=== PATIENT | female | born 1995 | race Caucasian/White ===

== ENCOUNTER 2020-04-09 15:42 | Outpatient (CLI) | payer OTHER ==
[2020-04-09 16:45] LABS: APPEARANCE,URINE SLIGHTLY-CLOUDY; BILIRUBIN,URINE NEGATIVE (NEGATIVE); COLOR,URINE STRAW; GLUCOSE, URINE NEGATIVE (NEGATIVE); KETONES,URINE TRACE mg/dL (NEGATIVE); LEUKOCYTE ESTERASE,URINE LARGE (NEGATIVE); NITRITE,URINE NEGATIVE (NEGATIVE); PROTEIN,URINE NEGATIVE (NEGATIVE); URINE SPECIFIC GRAVITY 1.003; UROBILINOGEN,URINE NEGATIVE mg/dL (<2.0)
== END 2020-04-09 16:08 | disposition home or self-care (01) ==
LOC: LC 15:42
PROVIDERS: ATTEND Obstetrics & Gynecology
DX: O36.8120 Decreased fetal movements, second trimester, not applicable or unspecified (principal); Z3A.25 25 weeks gestation of pregnancy
CPT/HCPCS: 81001

== ENCOUNTER 2020-07-29 13:58 | Inpatient (IN) | payer OTHER ==
[2020-07-29] MEDS ORDERED: RINGERS SOLUTION,LACTATED 1,000 ML IV ONE (14:14)
[2020-07-29] MEDS ORDERED: RINGERS SOLUTION,LACTATED 1,000 ML IV PRN (14:14)
[2020-07-29] MEDS ORDERED: OXYTOCIN/0.9 % SODIUM CHLORIDE 30 UNIT/500 ML RTUINJ IV PRN ×2 (14:20→19:13)
[2020-07-29 14:38] LABS: APPEARANCE,URINE SLIGHTLY-CLOUDY; BILIRUBIN,URINE NEGATIVE (NEGATIVE); COLOR,URINE YELLOW; GLUCOSE, URINE NEGATIVE (NEGATIVE); KETONES,URINE TRACE mg/dL (NEGATIVE); LEUKOCYTE ESTERASE,URINE SMALL (NEGATIVE); NITRITE,URINE NEGATIVE (NEGATIVE); PROTEIN,URINE 30 mg/dL (NEGATIVE); URINE SPECIFIC GRAVITY 1.017; UROBILINOGEN,URINE NEGATIVE mg/dL (<2.0)
[2020-07-29 14:40] LABS: ABSOLUTE BASOPHILS # (AUTO) 0.1 10^3/uL (0.0-0.2); ABSOLUTE EOSINOPHILS # (AUTO) 0.2 10^3/uL (0.0-0.6); ABSOLUTE LYMPHOCYTES (AUTO) 1.2 10^3/uL (0.5-4.7); ABSOLUTE MONOCYTES (AUTO) 0.6 10^3/uL (0.1-1.4); ABSOLUTE NEUT (AUTO) 5.7 10^3/uL (1.7-8.2); BASOPHILS % (AUTO) 0.7 % (0-2); EOSINOPHILS % (AUTO) 2.6 % (0-6); HEMATOCRIT 33.4 % (36.0-47.0); HEMOGLOBIN 10.8 g/dL (12.0-15.5); LYMPHOCYTES % (AUTO) 15.4 % (13-45); MEAN CORPUSCULAR HGB CONC 32.5 g/dL (32.0-36.0); MEAN CORPUSCULAR VOLUME 77 fl (80-97); MONOCYTES % (AUTO) 7.1 % (3-13); PLATELET COUNT 224 10^3/uL (150-450); RED BLOOD COUNT 4.33 10^6/uL (3.72-5.28); RED CELL DISTRIBUTION WIDTH 15.2 % (11.5-14.0); SEGMENTED NEUTROPHILS % (AUTO) 74.2 % (42-78); TOTAL CELLS COUNTED % (AUTO) 100 %; WHITE BLOOD COUNT 7.7 10^3/uL (4.0-10.5)
[2020-07-29] MEDS ORDERED: LIDOCAINE 1% INJ-PF (10 MG/ML) 30 ML SDV ONE (15:07)
[2020-07-29] MEDS ORDERED: MISOPROSTOL 0.2 MG TABLET ONE (15:07)
[2020-07-29] MEDS ORDERED: OXYTOCIN 10 UNIT/ML VIAL ONE (15:07)
[2020-07-29] MEDS ORDERED: OXYTOCIN/0.9 % SODIUM CHLORIDE 30 UNIT/500 ML RTUINJ ONE (15:08)
--- NOTE | 2020-07-29 15:08 | Admission Physical ---
Datetime Report Generated by CPN: 07/29/2020 15:07 CURRENT ADMISSION Hx Assessment: The History has been Reviewed and is Current Chief Complaint: Scheduled Induction of Labor Indication for Induction: Postterm Admit Impression : Postterm, Intrauterine Admit Plan: Admit to Unit; Initiate Labor Induction Protocol (Annotations: Data stored by [facility] on behalf of user) ALLERGIES Medication Allergies: No Medication Allergies: No Known Allergies (07/29/2020) Latex: No Latex Allergies OBSTETRICAL HISTORY EDC: 07/21/2020 00:00 : 2 Para: 1 Term: 1 : 0 SAB: 0 IAB: 0 Ectopic: 0 Livin Cesareans: 0 VBACs: 0 Multiple Births: 0 Gestational Diabetes: No Rh Sensitization: No Incompetent Cervix: No RITESH: No Infertility: No ART Treatment: No Uterine Anomaly: No IUGR: No Hx Previous C/S: No Macrosomia: No Hx Loss/Stillborn: No PIH: No Hx : No Placenta Previa/Abruption: No Depression/PP Depression: No PTL/PROM: No Post Hemorrhage: No Current Procedures: Ultrasound; NST Obstetrical History Comments: G1 [facility] 01/08/2018 SEE RECORDS Alcohol: No Marijuana : No Cocaine: No Other Illicit Drugs: No Cigarettes: Former Smoker. 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 Surgery: No Heart Disease: No Hosp/Surgery: Yes Autoimmune Disorder: No Anesthetic Complications: No Kidney Disease: No Abnormal Pap Smear: No Neuro/Epilepsy: No Psychiatric Disorders: No Other Medical Diseases: No Hepatitis/Liver Disease: No Significant Family History: No Varicosities/Phlebitis: No Trauma/Violence : No Thyroid Dysfunction: No INFECTIOUS HISTORY Gonorrhea: No Genital Herpes: No Chlamydia: No Tuberculosis: No Syphilis: No Hepatitis: No HIV/AIDS Exposure: No Rash or Viral Illness: No HPV: No PHYSICAL EXAM General: Normal Heart: Normal Lungs: Normal Abdomen: Normal Extremities: Normal Pelvic Type: Adequate Physical Exam Comments: proven to 7lbs 8oz Vital Signs: Reviewed; Within Normal Limits VAGINAL EXAM Contraction Comments: irregular MEMBRANES Membranes: Intact FETUS A EGA: 41.1 Monitoring: External US Presentation: Vertex Admit Comment: 24yo @41w1d into L_D for IOL secondary to post term . Pt is O pos, RI, GBS neg with uncomplicated . Plan is pitocin induction at this time. Epidural prn. Dr. Montano the OB program director/air personality today and aware of pt's arrival to unit. PLANS FOR LABOR AND DELIVERY Pain Management: Epidural Feeding Preference: Both Benefit of Breast Feed Discussed: Yes Circumcision: N/A INFORMED CONSENT Assignment: Tiffany Montano MD Signature: with User ID: Cathy : with User ID: Cathy
[2020-07-29 15:16] LABS: URINE AMPHETAMINES SCREEN NEGATIVE; URINE BARBITURATES SCREEN NEGATIVE; URINE BENZODIAZEPINES SCREEN NEGATIVE; URINE COCAINE SCREEN NEGATIVE; URINE MARIJUANA (THC) SCREEN NEGATIVE; URINE METHADONE SCREEN NEGATIVE; URINE PHENCYCLIDINE SCREEN NEGATIVE
--- NOTE | 2020-07-29 16:56 | L&D Progress Notes ---
PROGRESS NOTES Datetime Report Generated by CPN: 07/29/2020 16:56 PROGRESS NOTE Impression Other: IUP @ 43s2a-GQQ Procedures: Artificial ROM; Sterile Vag Exam Plan: Continue Present Management; Induction Informed Consent Obtained: Vaginal Delivery; Induction of Labor; Risks, Benefits and Alternatives Discussed Vital Signs : Reviewed; Within Normal Limits Comment: S:pt comfortable, planning epidural for pain relief, no concerns at this time, agreeable to AROM O:vss, cat I tracing, cervix as stated, pit @ 4mu/min A: IUP @ 13x3g-BNZ for post dates- stable AROM-moderate amount of clear fluid, tolerated well P: continue IOL, anticipate vaginal delivery, epidural prn VAGINAL EXAM Contractions: irregular LAST VAGINAL EXAM-NURSING Nursing Exam Dilitation: 5.0 Nursing Exam Effacement: 60 Nursing Exam Station: -1 Nursing Exam Contractions: with irritability MEMBRANES Membranes: Ruptured Amniotic Fluid Color: Clear FETUS A FHR Category: Category I Presentation: Vertex SIGNATURE SIGNATURE: [id number] Assignment: Tiffany Montano MD Signature: with User ID: Cathy : with User ID: Cathy
[2020-07-29] MEDS ORDERED: PROMETHAZINE HCL INJ 25 MG/1 ML VIAL IV ONE (16:59)
[2020-07-29] MEDS ORDERED: NALBUPHINE HCL INJ 10 MG/1 ML AMPULE IV ONE (16:59)
[2020-07-29] MEDS ORDERED: NALBUPHINE HCL INJ 10 MG/1 ML AMPULE ONE (17:01)
[2020-07-29] MEDS ORDERED: PROMETHAZINE HCL INJ 25 MG/1 ML VIAL ONE (17:01)
[2020-07-29] MEDS ORDERED: FENTANYL/BUPIVACAINE/NS/PF 300 MCG/150 ML RTUINJ EPI ONE (17:02)
[2020-07-29] MEDS ORDERED: EPHEDRINE SULFATE INJ 50 MG/1 ML AMPULE ONE (17:02)
[2020-07-29] MEDS ORDERED: ROPIVACAINE HCL 0.2% INJ/PF (2 MG/ML) 20 ML SDV ONE (17:02)
[2020-07-29] MEDS ORDERED: DIPH/PERTUSS(ACELL)/TETANUS VAC/PF 0.5 ML SYR (>=10YO) IM PRN (19:13)
[2020-07-29] MEDS ORDERED: ZOLPIDEM TARTRATE 5 MG TABLET PO PRN (19:13)
[2020-07-29] MEDS ORDERED: PROMETHAZINE HCL INJ 25 MG/1 ML VIAL IV PRN (19:13)
[2020-07-29] MEDS ORDERED: GLYCERIN/WITCH HAZEL LEAF 1 EACH MED..WIPE TP PRN (19:13)
[2020-07-29] MEDS ORDERED: PROMETHAZINE HCL 25 MG TABLET PO PRN (19:13)
[2020-07-29] MEDS ORDERED: MAGNESIUM HYDROXIDE SUSP 30 ML UDCUP PO PRN (19:13)
[2020-07-29] MEDS ORDERED: DIBUCAINE 1% OINTMENT 28 GM TP PRN (19:13)
[2020-07-29] MEDS ORDERED: DIPHENHYDRAMINE HCL 25 MG CAPSULE PO PRN (19:13)
[2020-07-29] MEDS ORDERED: MEASLES,MUMPS&RUBELLA VACC/PF 0.5 ML VIAL SUBCUT PRN (19:13)
[2020-07-29] MEDS ORDERED: NA PHOS,M-B/NA PHOS,DI-BA (ADULT) 133 ML ENEMA PR PRN (19:13)
[2020-07-29] MEDS ORDERED: ACETAMINOPHEN WITH CODEINE #3 TABLET PO PRN ×2 (19:13)
[2020-07-29] MEDS ORDERED: BENZOCAINE/MENTHOL AEROSOL SPRAY 56 ML TOP PRN (19:13)
[2020-07-29] MEDS ORDERED: PSEUDOEPHEDRINE HCL 30 MG TABLET PO PRN (19:13)
[2020-07-29] MEDS ORDERED: PROMETHAZINE HCL 25 MG SUPP.RECT PR PRN (19:13)
[2020-07-29] MEDS ORDERED: ACETAMINOPHEN 650 MG SUPP.RECT PR PRN (19:13)
--- NOTE | 2020-07-29 22:11 | Delivery Summary ---
Del Sum A-C Datetime Report Generated by CPN: 07/29/2020 22:11 DELIVERY PERSONNEL DELIVERY PERSONNEL: [id number] Delivery Doctor:: Tiffany Montano MD Labor and Delivery Nurse:: Viri Lobo RNhand brush filler Nurse:: Rebeca Pete RN Nursery Nurse:: Kevyn Fajardo RN MATERNAL INFORMATION Delivery Anesthesia: Epidural Medications After Delivery: Pitocin 30 Units in 500ml NS/D5W; Cytotec 1000mcg Per Rectum/Vagina Estimated Blood Loss (ml): 400 Maternal Complications: Precipitous Labor (<3hrs) LABOR SUMMARY EDC: 07/21/2020 00:00 No. Babies in Womb: 1 Attempted: No Labor Anesthesia: Epidural LABOR INFORMATION Reason for Induction: Post Dates Onset of Labor: 07/29/2020 16:40 Complete Dilatation: 07/29/2020 18:48 Oxytocin: Induction Group B Beta Strep: Negative Antibiotics # of Doses: 0 Steroids Given: None Reason Steroids Not Administered: Not Applicable MEMBRANES Membranes Rupture Method: Artificial Rupture of Membranes: 07/29/2020 16:40 Length of Rupture (hr): 2.27 Amniotic Fluid Color: Clear Amniotic Fluid Amount: Small Amniotic Fluid Odor: Normal STAGES OF LABOR Stage 1 hr: 2 Stage 1 min: 8 Stage 2 hr: 0 Stage 2 min: 8 Stage 3 hr: 0 Stage 3 min: 6 Total Time in Labor hr: 2 Total Time in Labor min: 22 VAGINAL DELIVERY Episiotomy: None Laceration #1: Perineal Laceration Extension #1: First Degree Laceration #2: None Laceration #3: None Laceration Repair: Not Applicable Laceration Repair Note: first degree perineal skin break not in need of repair. Sponge Count Correct: N/A; Vaginal Sweep Performed Sharps Count Correct: N/A CSECTION DELIVERY Primary Indication: N/A Secondary Indication: N/A CSection Incidence: N/A Labor: N/A Elective: N/A CSection Incision: N/A BABY A INFORMATION Infant Delivery Date/Time: 07/29/2020 18:56 Method of Delivery: Vaginal Nurse Controlled Delivery: No Born in Route : No : N/A Forceps: N/A Vacuum Extraction: N/A Shoulder Dystocia : No PRESENTATION/POSITION BABY A Presentation: Cephalic Cephalic Presentation: Vertex Vertex Position: Left Occipital Anterior Breech Presentation: N/A PLACENTA INFORMATION BABY A Placenta Delivery Time : 07/29/2020 19:02 Placenta Method of Delivery: Spontaneous Placenta Status: Delivered SCORES BABY A Heart Rate 1 min: >100 bpm Resp Effort 1 min: Good Cry Reflex Irritability 1 min: Cough or Sneeze or Pulls Away Muscle Tone 1 min: Active Motion Color 1 min: Body [place], Extremities Blue SCORE 1 MIN: 9 Heart Rate 5 min: >100 bpm Resp Effort 5 min: Good Cry Reflex Irritability 5 min: Cough or Sneeze or Pulls Away Muscle Tone 5 min: Active Motion Color 5 min: Body [place], Extremities Blue SCORE 5 MIN: 9 INFANT INFORMATION BABY A Gestational Age at Delivery: 41.1 Gestational Status: Late Term- 41- 41.6 Weeks Outcome : Liveborn Condition : Stable Sex: Female IDENTIFICATION BABY A Verification Date/Time: 07/29/2020 19:29 ID Band Number: [id number] Mother's Name Verified: Yes Infant RN Verifying : Tea Saldana RN/ Nakia Collado RN WEIGHT/LENGTH BABY A Infant Birthweight (gm): 3799 Weight (lb): 8 Infant Weight (oz): 6 Length (in): 21.50 Infant Length (cm): 54.61 CORD INFORMATION BABY A No. Cord Vessels: 3 Nuchal Cord : N/A Cord Blood Taken: Yes-For Eval (Mom's Blood Type - or O+) ASSESSMENT BABY A Complications: None Physical Findings at Delivery: Within Normal Limits Skin to Skin: Yes Transferred To: Remains with Mother BABY B INFORMATION : N/A SIGNATURES Signature: with User ID: [email or web address]
--- NOTE | 2020-07-29 22:11 | Birth Certificate Data ---
Cert Data Datetime Report Generated by CPNick: 07/29/2020 22:11 CERTIFICATE DATA 47a. Care: Yes (04/09/2020 15:54:Viri Lobo RN) 47b. Date of First Visit: 01/09/2020 00:00 (04/09/2020 15:54:Viri Lobo RN) 47c. Date of Last Visit: 07/22/2020 00:00 (04/09/2020 15:54:Viri Lobo RN) 47d. Number of Visits: 13 (04/09/2020 15:54:Viri Lobo RN) 48a. Number of Prev Live Births: 1 (04/09/2020 15:54:Viri Lobo RN) 48b. Now Livin (04/09/2020 15:54:Viri Lobo RN) 48c. Live Births Now : 0 (04/09/2020 15:54:QS system process) 48d. Date of Last Live : 01/08/2018 00:00 (04/09/2020 15:54:Viri Lobo RN) 48e. Losses: 0 (04/09/2020 15:54:Viri Lobo RN) RISK FACTORS IN THIS 49a. Diabetes: No (04/09/2020 15:54:Viri Lobo RN) 49b. Hypertension: No (04/09/2020 15:54:Viri Lobo RN) 49c. Previous Births: 0 (04/09/2020 15:54:Viri Lobo RN) 49d. Stillborns: No (04/09/2020 15:54:Viri Lobo RN) 49d. IUGR: No (04/09/2020 15:54:Viri Lobo RN) 49e. Infertility Treatment: No (04/09/2020 15:54:Viri Lobo RN) 49f. Previous Cesareans: 0 (04/09/2020 15:54:Viri Lobo RN) Mother's Height 50b. Height Inches: 62 (07/29/2020 21:47:QS system process) Mother's Weight 51a. Pre- Weight (lbs): 150 (04/09/2020 15:54:Viri Lobo RN) 51b. Weight at Delivery (lbs): 172 (07/29/2020 21:47:QS system process) 52. Dt Last Normal Menses Began: 10/15/2019 00:00 (04/09/2020 15:54:Viri Lobo RN) Infections Present/Treated 53a. Gonorrhea: No (04/09/2020 15:54:Viri Lobo RN) Results this Hospital Visit : Negative (04/09/2020 15:54:Viri Lobo RN) 53b. Syphilis: No (04/09/2020 15:54:Viri Lobo RN) 53c. Chlamydia: No (04/09/2020 15:54:Viri Lobo RN) Results this Hospital Visit: Negative (04/09/2020 15:54:Viri Lobo RN) 53d. Hepatitis B: No (04/09/2020 15:54:Viri Lobo RN) Results this Hospital Visit: Negative (04/09/2020 15:54:Viri Lobo RN) 53e. Hepatitis C: Unknown (04/09/2020 15:54:Viri Lobo RN) 53h. Mother Tested for HBsAG: Yes (04/09/2020 15:54:Viri Lobo RN) 53i. Date Tested: 01/09/2020 00:00 (04/09/2020 15:54:Viri Lobo RN) 53j. Test Result: Negative (04/09/2020 15:54:Viri Lobo RN) Obstetric Procedures 54a, b, c. Obstetric Procedures: Ultrasound; NST (04/09/2020 15:54:Viri Lobo RN) Cigarette Smoking 55a. 3 Months Before Preg - Ci (04/09/2020 15:54:Viri Lobo RN) 55a. Packs: 0 (04/09/2020 15:54:Viri Lobo RN) 55b. 1st Trimester of Preg- Ci (04/09/2020 15:54:Viri Lobo RN) 55b. Packs: 0 (04/09/2020 15:54:Viri Lobo RN) 55c. 2nd Trimester of Preg- Ci (04/09/2020 15:54:Viri Lobo RN) 55c. Packs: 0 (04/09/2020 15:54:Viri Lobo RN) 55d. 3rd Trimester of Preg- Ci (04/09/2020 15:54:Viri Lobo RN) 55d. Packs: 0 (04/09/2020 15:54:Viri Lobo RN) Onset of Labor 56a. PROM >12 Hrs: 2.27 (04/09/2020 15:54:QS system process) 56b. Precipitous Labor <3 Hrs: 2 (04/09/2020 15:54:QS system process) 56c. Prolonged Labor > 20 Hrs: 2 (04/09/2020 15:54:QS system process) 57a. Induction of Labor: Induction (04/09/2020 15:54:Viri Lobo RN) 57c. Non-Vertex Presentation A: Vertex (04/09/2020 15:54:Viri Lobo RN) 57d. Steroids - Lung Mat: None (04/09/2020 15:54:Viri Lobo RN) 57d. Steroids - Lung Mat: Not Applicable (04/09/2020 15:54:Viri Lobo RN) 57g. Moderate/Heavy Meconium: Clear (07/29/2020 16:40:Viri Lobo RN) 57h. Intolerance of Labor: N/A (04/09/2020 15:54:Viri Lobo RN) : N/A (04/09/2020 15:54:Viri Lobo RN) 57i. Epidural/Spinal Anesthesia: Epidural (04/09/2020 15:54:Viri Lobo RN) Method of Delivery 58a. Forceps - Unsuccessful A: N/A (04/09/2020 15:54:Viri Lobo RN) 58b. Vacuum - Unsuccessful A: N/A (04/09/2020 15:54:Viri Lobo RN) 58c. Presentation at 58c. Presentation at - A : Vertex (04/09/2020 15:54:Viri Lobo RN) 58c. Presentation at - A : N/A (04/09/2020 15:54:Viri Lobo RN) 58c. Presentation at - A : Cephalic (07/29/2020 15:13:Viri Lobo RN) Final Route and Method of Del 58d. Baby A Route/Delivery: Vaginal (07/29/2020 18:56:Viri Lobo RN) 58e. Trial of Labor Attempted: No (04/09/2020 15:54:Viri Lobo RN) 58e. Trial of Labor Attempted A: N/A (04/09/2020 15:54:Viri Lobo RN) 58e. Trial of Labor Attempted B: N/A (04/09/2020 15:54:Viri Lobo RN) Maternal Morbidity 59b. 3rd or 4th Degree Lacs: Perineal (04/09/2020 15:54:Tiffany Montano MD ([facility])) Birthweight Baby A: 3799 (04/09/2020 15:54:Reyna Saldana RN) 60a. Pounds : 8 (04/09/2020 15:54:QS system process) 60b. Ounces: 6 (04/09/2020 15:54:QS system process) 61. GA at Delivery Baby A: 41.1 (04/09/2020 15:54:Viri Lobo RN) : Late Term- 41- 41.6 Weeks (04/09/2020 15:54:QS system process) 62a. 5 Minute Baby A: 9 (04/09/2020 15:54:QS system process)
[2020-07-29] MEDS: IBUPROFEN 800 MG TABLET PO SCH (22:13)
[2020-07-29] MEDS: FAMOTIDINE 20 MG TABLET PO SCH (22:14)
[2020-07-30] MEDS: IBUPROFEN 800 MG TABLET PO SCH ×3 (06:08→21:11)
[2020-07-30 07:25] LABS: HEMATOCRIT 29.6 % (36.0-47.0); HEMOGLOBIN 9.7 g/dL (12.0-15.5); MEAN CORPUSCULAR HEMOGLOBIN 25.2 pg (27.0-33.4); MEAN CORPUSCULAR HGB CONC 32.8 g/dL (32.0-36.0); MEAN CORPUSCULAR VOLUME 77 fl (80-97); PLATELET COUNT 186 10^3/uL (150-450); RED BLOOD COUNT 3.86 10^6/uL (3.72-5.28); RED CELL DISTRIBUTION WIDTH 15.4 % (11.5-14.0); WHITE BLOOD COUNT 11.2 10^3/uL (4.0-10.5)
[2020-07-30] MEDS: FAMOTIDINE 20 MG TABLET PO SCH ×2 (09:27→21:11)
[2020-07-30] MEDS: PRENATAL VITAMIN W DHA CAPSULE PO SCH (09:27)
[2020-07-30] MEDS: SENNOSIDES/DOCUSATE 8.6-50 MG 1 EACH TABLET PO SCH (09:27)
[2020-07-30] MEDS: DOCUSATE SODIUM 100 MG CAPSULE PO SCH ×2 (09:27→17:53)
[2020-07-30] MEDS: FERROUS SULFATE 325 MG TABLET PO SCH ×2 (09:27→17:53)
--- NOTE | 2020-07-30 10:47 | PDOC PROGRESS REPORT ---
Subjective-OB Progress Note for:: 07/30/20 Subjective: reports bleeding slowing, pain controlled with current meds. denies needs Physical Exam (OB) Vital Signs: Temp Pulse Resp BP Pulse Ox 97.6 F 72 14 114/68 100 07/30/20 08:00 07/30/20 08:00 07/30/20 08:00 07/30/20 08:00 07/30/20 08:00 Intake & Output 07/29/20 07/30/20 07/31/20 06:59 06:59 06:59 Intake Total 1000 Balance 1000 Weight 78.018 kg - Maternal Morbidity 59. Maternal Morbidity (serious complications experinced by the mother associated with labor and delivery: None of the above - Lochia Lochia Color: Rubra/Red - Abdomen Description: Soft Hernia Present: No Fundal Description: Firm, Midline Fundal Height: u/u - u/2 - Abdominal Distension: No distension - Extremities Lower extremities: Barb's sign - neg Calf: Normal, Nontender Objective-Diagnostic Laboratory: 07/30/20 06:43 07/29/20 07/29/20 07/29/20 14:15 14:22 14:22 WBC 7.7 RBC 4.33 Hgb 10.8 L Hct 33.4 L MCV 77 L MCH 25.0 L MCHC 32.5 RDW 15.2 H Plt Count 224 Seg Neutrophils % 74.2 Urine Color YELLOW Urine Appearance SLIGHTLY-CLOUDY Urine pH 8.0 Ur Specific [place] 1.017 Urine Protein 30 H Urine Glucose (UA) NEGATIVE Urine Ketones TRACE H Urine Blood NEGATIVE Urine Nitrite NEGATIVE Ur Leukocyte Esterase SMALL H Blood Type O POSITIVE Antibody Screen NEGATIVE 07/30/20 06:43 WBC 11.2 H RBC 3.86 Hgb 9.7 L Hct 29.6 L MCV 77 L MCH 25.2 L MCHC 32.8 RDW 15.4 H Plt Count 186 Seg Neutrophils % Urine Color Urine Appearance Urine pH Ur Specific [place] Urine Protein Urine Glucose (UA) Urine Ketones Urine Blood Urine Nitrite Ur Leukocyte Esterase Blood Type Antibody Screen Assessment and Plan(PN) - Time Spent with Patient Time with patient: Less than 15 minutes - Disposition Anticipated Discharge Disposition: Home, Self Care Anticipated Discharge Timeframe: within 48 hours
[2020-07-31] MEDS: IBUPROFEN 800 MG TABLET PO SCH (05:40)
[2020-07-31] MEDS: DOCUSATE SODIUM 100 MG CAPSULE PO SCH (09:55)
[2020-07-31] MEDS: FAMOTIDINE 20 MG TABLET PO SCH (09:55)
[2020-07-31] MEDS: SENNOSIDES/DOCUSATE 8.6-50 MG 1 EACH TABLET PO SCH (09:55)
[2020-07-31] MEDS: FERROUS SULFATE 325 MG TABLET PO SCH (09:55)
[2020-07-31] MEDS: PRENATAL VITAMIN W DHA CAPSULE PO SCH (09:55)
--- NOTE | 2020-07-31 11:33 | PDOC DISCHARGE SUMMARY ---
Impression - Admit/DC Date/PCP Admission Date/Primary Care Provider: 07/29/20 13:58 ADDIS ZHANG MD Discharge Date: 07/31/20 - Discharge Diagnosis (1) Encounter for induction of labor Is this a current diagnosis for this admission?: Yes (2) Post-term , 40-42 weeks of gestation Is this a current diagnosis for this admission?: Yes (3) Precipitous delivery Is this a current diagnosis for this admission?: Yes (4) Vaginal delivery Is this a current diagnosis for this admission?: Yes - Additional Information Resuscitation Status: Full Code Discharge Diet: Regular Discharge Activity: Balance Activity w/Rest, Pelvic Rest Referrals: ADDIS ZHANG MD [Primary Care Provider] - Home Medications: Prenat 115/Iron Fum/Folic/Dss [ 19 Tablet] 1 each PO DAILY 07/29/20 HPI Gestational Age: 41+ Reason(s) for Admission: Induction of Labor Procedures: NST Intrapartum Procedure(s): Spontaneous Vaginal Delivery Hospital Course 59. Maternal Morbidity (serious complications experinced by the mother associated with labor and delivery: None of the above Results Laboratory Results: WBC 11.2 10^3/uL (4.0-10.5) H 07/30/20 06:43 RBC 3.86 10^6/uL (3.72-5.28) 07/30/20 06:43 Hgb 9.7 g/dL (12.0-15.5) L 07/30/20 06:43 Hct 29.6 % (36.0-47.0) L 07/30/20 06:43 MCV 77 fl (80-97) L 07/30/20 06:43 MCH 25.2 pg (27.0-33.4) L 07/30/20 06:43 MCHC 32.8 g/dL (32.0-36.0) 07/30/20 06:43 RDW 15.4 % (11.5-14.0) H 07/30/20 06:43 Plt Count 186 10^3/uL (150-450) 07/30/20 06:43 Lymph % (Auto) 15.4 % (13-45) 07/29/20 14:22 [place] % (Auto) 7.1 % (3-13) 07/29/20 14:22 Eos % (Auto) 2.6 % (0-6) 07/29/20 14:22 Baso % (Auto) 0.7 % (0-2) 07/29/20 14:22 Absolute Neuts (auto) 5.7 10^3/uL (1.7-8.2) 07/29/20 14:22 Absolute Lymphs (auto) 1.2 10^3/uL (0.5-4.7) 07/29/20 14:22 Absolute Monos (auto) 0.6 10^3/uL (0.1-1.4) 07/29/20 14:22 Absolute Eos (auto) 0.2 10^3/uL (0.0-0.6) 07/29/20 14:22 Absolute Basos (auto) 0.1 10^3/uL (0.0-0.2) 07/29/20 14:22 Seg Neutrophils % 74.2 % (42-78) 07/29/20 14:22 Urine Color YELLOW 07/29/20 14:15 Urine Appearance SLIGHTLY-CLOUDY 07/29/20 14:15 Urine pH 8.0 (5.0-9.0) 07/29/20 14:15 Ur Specific [place] 1.017 07/29/20 14:15 Urine Protein 30 mg/dL (NEGATIVE) H 07/29/20 14:15 Urine Glucose (UA) NEGATIVE mg/dL (NEGATIVE) 07/29/20 14:15 Urine Ketones TRACE mg/dL (NEGATIVE) H 07/29/20 14:15 Urine Blood NEGATIVE (NEGATIVE) 07/29/20 14:15 Urine Nitrite NEGATIVE (NEGATIVE) 07/29/20 14:15 Urine Bilirubin NEGATIVE (NEGATIVE) 07/29/20 14:15 Urine Urobilinogen NEGATIVE mg/dL (<2.0) 07/29/20 14:15 Ur Leukocyte Esterase SMALL (NEGATIVE) H 07/29/20 14:15 Urine Ascorbic Acid NEGATIVE (NEGATIVE) 07/29/20 14:15 Urine Opiates Screen NEGATIVE 07/29/20 14:15 Urine Methadone Screen NEGATIVE 07/29/20 14:15 Ur Barbiturates Screen NEGATIVE 07/29/20 14:15 Ur Phencyclidine Scrn NEGATIVE 07/29/20 14:15 Ur Amphetamines Screen NEGATIVE 07/29/20 14:15 U Benzodiazepines Scrn NEGATIVE 07/29/20 14:15 Urine Cocaine Screen NEGATIVE 07/29/20 14:15 U Marijuana (THC) Screen NEGATIVE 07/29/20 14:15 RPR NONREACTIVE (NONREACTIVE) 07/29/20 14:22 Blood Type O POSITIVE 07/29/20 14:22 Antibody Screen NEGATIVE 07/29/20 14:22 Plan Plan of Treatment: f/u at [facility] 4 wks Time Spent: Less than 30 Minutes
[2020-07-31 11:42] VITALS: BP 114/68
== END 2020-07-31 15:55 | disposition home or self-care (01) | DRG 807 ==
LOC: LR 13:58 → 2S 21:47
PROVIDERS: ADMIT Obstetrics & Gynecology; ATTEND Obstetrics & Gynecology
PROC: 10E0XZZ Delivery of Products of Conception, External Approach (ICD-10-PCS; principal; 2020-07-29)
PROC: 10907ZC Drainage of Amniotic Fluid, Therapeutic from Products of Conception, Via Natural or Artificial Opening (ICD-10-PCS; 2020-07-29)
DX: O48.0 Post-term pregnancy (principal); Z37.0 Single live birth; O62.3 Precipitate labor; O70.0 First degree perineal laceration during delivery; Z3A.41 41 weeks gestation of pregnancy; Z87.891 Personal history of nicotine dependence
CPT/HCPCS: 1967; 36415; 80307; 81005; 85025; 85027; 86592; 86850; 86900; 86901; J2300; J2550; J2590; J2795; J3010; J3490